=== PATIENT | female | born 1960 | race Caucasian/White ===

== ENCOUNTER → 2017-11-17 | Outpatient (CLI) | payer OTHER ==
[~2017-11-17] MED LIST: AMLO2.5T PO; CITA10TA8 PO; HYDR25TA4 PO; IBUP-103 PO; LORA-741 PO; LPD600 PO; LSN40 PO; ZCR40 PO
[2017-11-17 13:18] LABS: HEMOGLOBIN A1C 7.6 % (4.5-5.6)
[2017-11-17 13:49] LABS: ALBUMIN 3.5 gm/dl (3.4-5.0); ALT/SGPT 21 U/L (12-78); BLOOD UREA NITROGEN 29 mg/dl (7-18); CALCIUM 9.2 mg/dl (8.5-10.1); CARBON DIOXIDE 27 mmol/L (21-32); CHOLESTEROL 209 mg/dl (0-200); GLUCOSE 140 mg/dl (70-99); POTASSIUM 4.4 mmol/L (3.5-5.1); SODIUM 140 mmol/L (136-145)
[2017-11-17 13:52] LABS: ALKALINE PHOSPHATASE 72 U/L (45-117); AST/SGOT 10 U/L (15-37); LDL CHOLESTEROL CALCULATED 129 mg/dl; TOTAL PROTEIN 7.6 gm/dl (6.4-8.2)
== END | disposition home or self-care (01) ==
LOC: C.LABBFT 08:30
PROVIDERS: ATTEND Internal Medicine
DX: E55.9 Vitamin D deficiency, unspecified (principal); E11.29 Type 2 diabetes mellitus with other diabetic kidney complication; I10 Essential (primary) hypertension; E78.00 Pure hypercholesterolemia, unspecified

== ENCOUNTER → 2017-12-22 | Outpatient (CLI) | payer OTHER ==
--- NOTE | 2017-12-22 13:22 | DIAGNOSTIC IMAGING REPORT ---
R VENOUS DOPP LOWER EXT UNILAT CLINICAL HISTORY: M79.604 pain. Edema. TECHNIQUE: Venous Doppler COMPARISON STUDY: None FINDINGS: Normal study. Compressibility and augmentation characteristics are unremarkable. Venous flow is within normal limits. IMPRESSION: Normal study The above report was generated using voice recognition software. It may contain grammatical, syntax or spelling errors. Electronically signed by: Margarito Abel M.D. 12/22/2017 1:21 PM Dictated Date/Time: 12/22/2017 1:20 PM
--- NOTE | 2017-12-22 13:43 | DIAGNOSTIC IMAGING REPORT ---
R KNEE 3 VIEWS CLINICAL HISTORY: M25.561 pain COMPARISON: None. DISCUSSION: Considerable degenerative change medial and patellofemoral joint compartments. Considerable superior and inferior osteophytic change of the patella. Lateral joint compartment is generally well preserved. Degenerative change throughout all major joint surfaces. No significant joint effusion. There is no evidence for soft tissue swelling. IMPRESSION: Considerable degenerative change. No acute process. The above report was generated using voice recognition software. It may contain grammatical, syntax or spelling errors. Electronically signed by: Margarito Abel M.D. 12/22/2017 1:42 PM Dictated Date/Time: 12/22/2017 1:41 PM
== END | disposition home or self-care (01) ==
LOC: C.ULTR 12:50
PROVIDERS: ATTEND Internal Medicine
DX: M25.561 Pain in right knee (principal); M79.604 Pain in right leg

== ENCOUNTER 2018-05-14 06:03 | Inpatient (IN) | payer OTHER ==
--- NOTE | 2018-05-08 18:18 | HISTORY & PHYSICAL EXAMINATION ---
DATE OF ADMISSION: 05/14/2018 CHIEF COMPLAINT: Right knee pain. HISTORY OF PRESENT ILLNESS: A 58-year-old female who presents for surgical treatment of her right knee. She has been followed by Dr. Bernal, my partner for the past 8 years or so. She has had 8-year history of global increasing right knee pain and discomfort that has gotten worse over the past 2 years. She has got global pain in her knee. The more she walks, the more it hurts. It is starting to affect her sleep pattern. She has been through injections which provided temporary relief only. She would like to have the right knee replaced. We had her scheduled for earlier in the year but had to cancel due to some insurance issues but that has been sorted out. There has been no interval change in her medical situation. PAST MEDICAL HISTORY: 1. Hypertension. 2. Elevated cholesterol. 3. Anxiety/depression. 4. Obesity. 5. Kidney disease. 6. Diabetes. PAST SURGICAL HISTORY: Includes x2. ALLERGIES: None. CURRENT MEDICINES: Include: 1. Lisinopril 40 mg a day. 2. Hydrochlorothiazide 25 mg a day. 3. Simvastatin 40 mg. 4. Lorazepam 5 mg p.r.n. for anxiety. 5. Gemfibrozil 600 mg twice a day. 6. Vitamin D 5000 units once a week. SOCIAL HISTORY: A 57-year-old white female. She is . Rare alcohol intake. No tobacco use. FAMILY HISTORY: Heart disease and stroke, diabetes and cancer. REVIEW OF SYSTEMS: Negative for chest pain or shortness of breath. No history of DVT or PE. Her medical doctor is Dr. Storey. Her A1c is 7.6. PHYSICAL EXAMINATION: GENERAL: Reveals a pleasant, middle-aged female, looks to be in reasonably good health. HEENT: Benign. NECK: Supple, no lymphadenopathy. LUNGS: Clear to auscultation. HEART: Regular rate and rhythm. ABDOMEN: Soft, nontender, nondistended. EXTREMITIES: Grossly neurovascularly intact except as follows: Examination of the right knee reveals patient walks with a bit of a waddling gait. She does limp on her right side. She has small to moderate size knee effusion. Range of motion is 5-120. No instability. No pain with hip motion. X-RAYS: X-ray of the right knee reviewed. Shows advanced right knee DJD. She has tricompartment disease. She has complete loss of medial joint space. She has got osteophytes both medially and laterally. ASSESSMENT: A 57-year-old white female with an 8-year history of increasing right knee pain and discomfort, unresponsive to conservative treatment. She would like to proceed with knee replacement. PLAN: We will take her to the operating room and do a right total knee replacement. The risks and benefits of procedure were explained to the patient including but not limited to DVT, PE, , infection, neurological injury, vascular injury, bleeding problem, pain, limited range of motion, stiffness, failure to relieve symptoms, incomplete relief of symptoms, need for further surgery in the future, fracture, leg length, nerve palsy, etc. The patient understands and desires to proceed. Informed consent was obtained. We did talk about holding her NSAIDs as well as her lisinopril the morning of surgery. We will follow her creatinine and limit NSAID use as indicated based on her creatinine. As far as discharge plan, she is hoping to be discharged to home with her 's assistance and the [facility] home health program.
[2018-05-10 12:03] VITALS: BMI 39.0
[~2018-05-14] VITALS: Ht 160 cm; Wt 102.0 kg
[2018-05-14] VITALS (9 sets, daily range): BP systolic 123–185; BP diastolic 69–90; PULSE 60–75; TEMP 36.2–36.7; O2SAT 95–100; Ht 160 cm; Wt 102.0 kg
[~2018-05-14 06:03] MED LIST changes: +ACETAMINOPHEN 500 MG TAB PO SCH; -AMLO2.5T PO; +BUPIVACAINE LIPOSOME 266 MG, BUPIVACAINE/EPINEPHRINE INJ 50 ML, SODIUM CHLORIDE 0.9% PF... INFIL SCH; +CEFAZOLIN 2000MG IV PUSH 15 ML IV SCH; -CITA10TA8 PO; +ERGO500037 PO; +FAMOTIDINE 20 MG TAB PO SCH; +GABAPENTIN 600 MG PO SCH; +LACTATED RINGER'S 1000ML IV SCH; +LACTATED RINGER'S 500 ML IV SCH; +LISI40TA3 PO; -LSN40 PO; +METOCLOPRAMIDE HCL 10 MG TAB PO SCH; +NSS 1000ML IV SCH; +SCOPOLAMINE 1.5 MG TDSY TD SCH; +SODIUM CHLORIDE 0.9% 1000ML 1,000 ML IV SCH; +TRANEXAMIC ACID INJ 1,000 MG x 1 Bag Intra-Op IV SCH
[2018-05-14] MEDS ORDERED: ACET1TAB84 PO (06:41)
--- NOTE | 2018-05-14 06:55 | History & Physical Bridge Note ---
H&P Re-Evaluation Bridge Note: I have examined the patient, reviewed the History & Physical and in the interval since the performance of the History & Physical I have noted the following changes of clinical significance: No changes noted
[2018-05-14] MEDS ORDERED: MIDAZOLAM HCL 1 MG/ML 2ML VIAL ONE ×3 (07:37→10:14)
[2018-05-14] MEDS ORDERED: LIDOCAINE HCL 2% 2 ML VIAL (20MG/ML) ONE (07:37)
[2018-05-14] MEDS ORDERED: PROPOFOL IV EMULSION 10 MG/ML 20 ML VIAL ONE (07:37)
[2018-05-14] MEDS ORDERED: ROPIVACAINE 0.5% 5 MG/ML 30 ML VIAL ONE (07:49)
[2018-05-14] MEDS ORDERED: BUPIVACAINE 0.5 % 5 MG/1 ML PF 10ML VIAL ONE (07:50)
[2018-05-14] MEDS ORDERED: BUPIVACAINE LIPOSOME 1/3% 266 MG/20 ML VIAL ONE (08:51)
[2018-05-14] MEDS ORDERED: BUPIVACAINE 0.25% 30 ML VIAL ONE (08:51)
[2018-05-14] MEDS ORDERED: SODIUM CHLORIDE 0.9% PF 50 ML VIAL ONE (08:51)
[2018-05-14] MEDS ORDERED: BACITRACIN 50000 UNIT VIAL ONE (08:51)
[2018-05-14] MEDS ORDERED: EpINEphrine INJ 1MG/ML AMP 1 MG/ML AMP ONE (08:52)
[2018-05-14] MEDS ORDERED: HYDROmorphone INJ 2 MG/ML SYR/VIAL IV PRN (09:15)
[2018-05-14] MEDS ORDERED: ATROPINE SULFATE 0.1 MG/ML 5ML SYR IV PRN (09:15)
[2018-05-14] MEDS ORDERED: PHENYLEPHRINE 100MCG/ML 5ML SYR IV PRN (09:15)
[2018-05-14] MEDS ORDERED: EpHEDrine SULFATE INJ 50 MG/ML AMP IV PRN (09:15)
[2018-05-14] MEDS ORDERED: KETOROLAC TROMETHAMINE 30 MG/ML VIAL IV. PRN (09:15)
[2018-05-14] MEDS ORDERED: ONDANSETRON INJ 2 MG/ML 2 ML VIAL IV PRN ×2 (09:15→11:15)
[2018-05-14] MEDS ORDERED: PHENYLEPHRINE 100MCG/ML 5ML SYR ONE (09:55)
[2018-05-14] MEDS ORDERED: GLYCOPYRROLATE INJ 0.2 MG/ML VIAL ONE (09:55)
[2018-05-14] MEDS ORDERED: METOPROLOL TARTRATE 1 MG/ML VIAL ONE (10:55)
--- NOTE | 2018-05-14 11:06 | [facility] Post Operative Brief Note ---
Immediate Operative Summary Operative Date May 14, 2018. 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 Right Knee bone and tissue Drains None Anesthesia Type MAC Spinal Regional Complication(s) none Disposition Accompanied Pt To Recover: no Disposition: Recovery Room / PACU Overlapping Procedure I was present for: the critical portions of procedure. I was immediately available: during the entire case
[2018-05-14] MEDS ORDERED: SILVER SULFADIAZINE 1% CR 50 GM JAR EXT PRN (11:15)
[2018-05-14] MEDS ORDERED: DEXTROSE 50% 50 ML SYR IV PRN (11:15)
[2018-05-14] MEDS ORDERED: ZOLPIDEM TARTRATE 5 MG TAB PO PRN (11:15)
[2018-05-14] MEDS ORDERED: DiphenhydrAMINE HCL 50 MG/ML VIAL IV PRN (11:15)
[2018-05-14] MEDS ORDERED: GLUCOSE 40% GEL 15 GM TUBE PO PRN (11:15)
[2018-05-14] MEDS ORDERED: MAGNESIUM HYDROXIDE SUSP 30 ML UDC PO PRN (11:15)
[2018-05-14] MEDS ORDERED: ALUMINUM/MAGNESIUM/SIMETH (MAALOX MAX) 30 ML UDC PO PRN (11:15)
[2018-05-14] MEDS ORDERED: GLUCOSE 10 TABS/TUBE PO PRN (11:15)
[2018-05-14] MEDS ORDERED: LORAZEPAM 0.5 MG TAB PO PRN (11:15)
[2018-05-14] MEDS ORDERED: CARBOHYDRATES FOR HYPOGLYCEMIA PO PRN (11:15)
[2018-05-14] MEDS ORDERED: METOCLOPRAMIDE HCL INJ 5 MG/ML 2 ML VIAL IV PRN (11:15)
[2018-05-14] MEDS ORDERED: BISACODYL 10 MG SUPP PR PRN (11:15)
[2018-05-14] MEDS ORDERED: GLUCAGON FOR INJ 1 MG VIAL SQ PRN (11:15)
--- NOTE | 2018-05-14 11:30 | DIAGNOSTIC IMAGING REPORT ---
RIGHT KNEE 2 VIEWS History: Right total knee arthroplasty. Degenerative arthritis. Postop. FINDINGS: The patient is status post a right total knee arthroplasty. The hardware is intact. No fracture or dislocation. Skin dominik are in place. IMPRESSION: Right total knee arthroplasty. No evidence for hardware complication. Electronically signed by: Cesar Francois M.D. 05/14/2018 11:29 AM Dictated Date/Time: 05/14/2018 11:29 AM
[2018-05-14] MEDS: FERROUS GLUCONATE 324 MG TAB PO SCH ×2 (13:10→17:39)
[2018-05-14] MEDS: ACETAMINOPHEN 500 MG TAB PO SCH ×2 (13:12→21:56)
[2018-05-14] MEDS: KETOROLAC TROMETHAMINE 30 MG/ML VIAL IV. SCH ×2 (13:13→21:56)
[2018-05-14] MEDS: TRAMADOL HCL 50 MG TAB PO PRN ×3 (13:21→18:12)
[2018-05-14] MEDS: SODIUM CHLORIDE 0.9% 1000ML 1,000 ML IV SCH ×2 (13:21→22:01)
--- NOTE | 2018-05-14 13:32 | Anesthesiology Progress Note ---
Anesthesia Post Op Note Date & Time May 14, 2018 at 13:32 Vital Signs Vital Signs Past 12 Hours Date Time Temp Pulse Resp B/P (MAP) Pulse Ox O2 Delivery O2 Flow Rate FiO2 05/14/18 12:50 36.5 75 18 159/79 (105) 100 Nasal Cannula 3.0 05/14/18 12:20 36.3 72 16 159/87 (111) 100 Nasal Cannula 3.0 05/14/18 11:50 36.4 74 18 123/69 (87) 100 Nasal Cannula 2.0 05/14/18 11:50 Nasal Cannula 2.0 05/14/18 11:50 Nasal Cannula 05/14/18 11:35 36.9 72 16 108/54 96 Nasal Cannula 2 05/14/18 11:25 77 16 99/55 96 Nasal Cannula 2 05/14/18 11:15 71 16 93/55 93 Nasal Cannula 2 05/14/18 11:08 37.2 85 16 103/46 93 Room Air 05/14/18 06:46 36.7 72 18 185/81 97 Room Air Notes Mental Status: alert / awake / arousable, participated in evaluation Pt Amnestic to Procedure: Yes Nausea / Vomiting: adequately controlled Pain: adequately controlled Airway Patency, RR, SpO2: stable & adequate BP & HR: stable & adequate Hydration State: stable & adequate Anesthetic Complications: no major complications apparent
[2018-05-14] MEDS: HYDROmorphone INJ 0.5 MG/0.5 ML SYR IV PRN ×2 (14:11→15:13)
--- NOTE | 2018-05-14 14:33 | OPERATIVE REPORT ---
DATE OF OPERATION: 05/14/2018 SURGEON: Brian Lechuga MD [id number] ARMOR CREWMAN: Raf Haynes PA-C PREOPERATIVE DIAGNOSIS: Right knee degenerative joint disease. POSTOPERATIVE DIAGNOSIS: Same. PROCEDURE PERFORMED: Right cemented posterior stabilized total knee arthroplasty. COMPLICATIONS: None. ESTIMATED BLOOD LOSS: 50 mL. FLUID REPLACEMENT: 1600 mL crystalloid fluid replacement. ANESTHESIA: Spinal, with adductor canal block. DRAINS: None. SPECIMENS: Right knee sent for pathology. TOURNIQUET TIME: 59 minutes at 300 mmHg. OPERATIVE INDICATIONS: Patient is a 58-year-old female who has had a very long history of right knee pain and discomfort, treated by my partner, Dr. Bernal, over the past 8 years or so. It has gradually gotten worse over time. In the last 2 years, it has just gotten progressively worse to the point where she is having trouble getting around. X-rays show advanced DJD. She had actually been scheduled for a surgery in the past but had to reschedule due to some insurance issues. She now would like to proceed with total knee arthroplasty. OPERATIVE FINDINGS: Advanced right knee DJD. She had extensive grade 4 changes in the medial femoral condyle and medial tibial plateau. She did have eburnation of the bone as well. She had a varus deformity to her knee, moderate size joint effusion. OPERATIVE IMPLANTS: Consisted of: 1. Biomet Vanguard size 60 right posterior stabilized femoral component. 2. Biomet size 63 tibial tray. 3. A 10 mm posterior stabilized polyethylene insert. 4. A 28 x 8 All-Poly patella. OPERATIVE PROCEDURE: Patient was taken to the operating room, identified and placed on the operating room table in supine position. All contact areas were appropriately padded. IV antibiotics provided by anesthesia team. A spinal anesthetic and adductor canal block had been provided in the holding area. Cage catheter was placed in sterile fashion. Right thigh tourniquet was then placed, and the right lower extremity was then prepped and draped in the usual sterile fashion. The right leg was elevated and exsanguinated with Esmarch. The tourniquet was placed at 300 mmHg. An anterior approach to the right knee was then performed to longitudinal incision centered over the patella. Sharp dissection was carried down through subcutaneous tissue down to the level of the extensor mechanism. A medial parapatellar arthrotomy incision was made. Some subperiosteal dissection was carried out medially. Fat pad resected from beneath the patellar tendon. Lateral patellofemoral ligament was released. Patella was everted. Knee was flexed. The osteophytes were taken off distal femur. The ACL and PCL were then released from the distal femur and the tibia subluxated anteriorly. The external tibial alignment jig was then placed in the anterior face of the tibia and adjusted 14 mm medially. Proximal tibial cut was made to remove about 1 mm of bone from the most deficient aspect of the medial tibial plateau. Some osteophytes were taken off medially and posteromedially. Tibia was sized to a size 63. Attention was then drawn to the femur. The distal femur was entered with a sharp drill. Intramedullary canal was suctioned. A right 5 degree valgus cutting guide was placed. Distal femoral cutting block was pinned in place. Distal femoral cut was made to take an additional 3 mm of bone off distal femur. The femur was then sized to a size 60. We did downsize this slightly. The AP cutting block was pinned parallel to the epicondylar axis, which was 3 degrees of external rotation. The anterior cut, anterior chamfer, posterior cut, and posterior chamfer cuts were made. Box cutting guide was placed and adjusted slightly lateral, and the box cut was made. The knee was flexed. The remnants of the medial and lateral menisci were excised. The osteophytes were taken off the posterior aspect of the femur. A trial femoral component was placed. Tibial tray was pinned in maximum external rotation, and the drill and stem punch were used to create the defect in the proximal tibia for the tibial tray. Knee was then trialed, and a 10 mm insert fit most appropriately. Attention was then drawn to the patella. The patella was cleaned of all soft tissues. Patellar thickness measured 18 mm, cut down to 12. It was sized to a size 28 patella. Locals were drilled for a 28 patella. Lateral osteophyte was removed. Patellar button was placed. Knee was taken through range of motion, and patella tracked nicely with no thumbs test. Attention was then drawn toward placement of the permanent components. All trial components removed. Bone plug was placed in the distal femur to limit blood loss. A double batch of Palacos G cement was mixed. A right size 60 posterior stabilized femoral component, size 63 tibial tray, 10 mm posterior stabilized polyethylene insert, and a 28 x 8 All-Poly patella then cemented in place. Knee was brought into full extension until cement hardened. A final cement check was then performed. Pericapsular tissues were injected with a total of 100 mL of a combination of 20 mL of Exparel, 30 mL normal saline, and 50 mL of 0.25% Marcaine with epinephrine. Patient did receive 1 g of tranexamic acid. The tourniquet was then let down for a final tourniquet time of 59 minutes. Hemostasis was assured using electrocautery. The extensor mechanism was then closed with combination of #1 PDS suture and #1 Vicryl suture in a [id number] fashion. Extensor mechanism was checked and found to be intact. The subcutaneous tissue was then closed with #2 Dexon suture in a buried interrupted fashion. Skin was closed with skin dominik. Leg was then cleaned and dried, and a sterile dressing of Xeroform, 4x4s, sterile cast padding, and Ananth bandage were applied. The patient was then transferred to the recovery room in stable condition. The patient tolerated the procedure well without complication. All needle and sponge counts were correct at the end of the operation. I attest to the content of the Intraoperative Record and any orders documented therein. Any exceptions are noted below. DAGMAR
[2018-05-14] MEDS: CHECK SCOPOLAMINE PATCH PLACEMENT SCH ×2 (15:06→23:59)
--- NOTE | 2018-05-14 15:38 | PROGRESS NOTE ---
DATE: 05/14/2018 SUBJECTIVE: A 58-year-old white female postop from a right knee replacement. She is doing well. Just starting to get pain in her leg. Denies any chest pain, no shortness of breath. Not feeling dizzy or lightheaded. OBJECTIVE: VITAL SIGNS: Temperature 36.6. Stable. GENERAL: Physical exam shows a pleasant middle-aged female. She is sitting up in bed, looks reasonably comfortable. She is talking to her family. RESPIRATORY: Her lungs are clear to auscultation. CARDIOVASCULAR: Heart has a regular rate and rhythm. GASTROINTESTINAL: Abdomen is soft, nontender, nondistended. EXTREMITIES: Grossly neurovascularly intact except as follows: Examination of the right leg reveals the leg to be well aligned. Dressing is clean, dry, and intact. She can dorsiflex and plantarflex her foot appropriately. NEUROLOGICAL: She is neurologically intact. IMAGING: X-rays of the right knee from recovery room reviewed. It showed cemented posterior stabilized total knee arthroplasty. Components looked to be in good position. No signs of problems. ASSESSMENT: A 58-year-old female postop from a right knee replacement, doing well. Pain is controlled. She is neurologically intact. PLAN: 1. DVT prophylaxis including thigh-high TEDs, SCDs, and aspirin twice a day. 2. PT/OT. Weight bear as tolerated. Right total knee protocol. 3. Pain control, doing pretty well with current pain regimen. 4. IV antibiotics x24 hours. 5. Disposition: Plan is to discharge to home likely with some home health once adequately recovered.
[2018-05-14] MEDS: CEFAZOLIN IV 2,000 MG in SYRINGE 0 ML IV SCH (16:28)
[2018-05-14] MEDS ORDERED: TRANEXAMIC ACID INJ 1,000 MG in SODIUM CHLORIDE 0.9% 100ML 100 ML IV SCH (17:00)
[2018-05-14] MEDS: INSULIN HUMAN REGULAR SC SCH ×2 (17:40→21:55)
[2018-05-14] MEDS: DOCUSATE SODIUM 100 MG CAP PO SCH (19:37)
[2018-05-14] MEDS: SENNA 8.6 MG TAB PO SCH (19:38)
[2018-05-14] MEDS: ASPIRIN 81 MG ECTAB PO SCH (19:38)
[2018-05-15] MEDS: CEFAZOLIN IV 2,000 MG in SYRINGE 0 ML IV SCH (00:02)
[2018-05-15] MEDS: KETOROLAC TROMETHAMINE 30 MG/ML VIAL IV. SCH ×4 (02:22→20:21)
[2018-05-15 03:03] VITALS: BP 117/76; PULSE 70; TEMP 36.8; O2SAT 94
[2018-05-15] MEDS: ACETAMINOPHEN 500 MG TAB PO SCH ×3 (05:46→21:47)
[2018-05-15] MEDS: SODIUM CHLORIDE 0.9% 1000ML 1,000 ML IV SCH (05:46)
[2018-05-15 05:52] LABS: HEMATOCRIT 33.1 % (37-47); HEMOGLOBIN 10.7 g/dL (12.0-16.0); MEAN CELL VOLUME 98.8 fL (80-100); MEAN CORPUSCULAR HEMOGLOBIN 31.9 pg (25-34); MEAN CORPUSCULAR HGB CONC 32.3 g/dl (32-36); MEAN PLATELET VOLUME 10.8 fL (7.4-10.4); PLATELET COUNT 219 K/uL (130-400); RED CELL DISTRIBUTION WIDTH CV 11.9 % (11.5-14.5); RED CELL DISTRIBUTION WIDTH SD 42.9 fL (36.4-46.3); WHITE BLOOD COUNT 9.74 K/uL (4.8-10.8)
[2018-05-15 06:21] LABS: CALCIUM 7.9 mg/dl (8.5-10.1); CREATININE 1.16 mg/dl (0.60-1.20); POTASSIUM 4.2 mmol/L (3.5-5.1)
[2018-05-15 07:44] VITALS: BP 145/87; PULSE 57; TEMP 36.7; O2SAT 97
[2018-05-15] MEDS: CHECK SCOPOLAMINE PATCH PLACEMENT SCH ×2 (08:20→15:29)
[2018-05-15] MEDS: TRAMADOL HCL 50 MG TAB PO PRN ×3 (08:20→17:19)
[2018-05-15] MEDS: FERROUS GLUCONATE 324 MG TAB PO SCH ×3 (08:21→17:16)
[2018-05-15] MEDS: ASPIRIN 81 MG ECTAB PO SCH ×2 (08:22→20:21)
[2018-05-15] MEDS: HYDROCHLOROTHIAZIDE 25 MG TAB PO SCH (08:22)
[2018-05-15] MEDS ORDERED: ASPI-461 PO (08:22)
[2018-05-15] MEDS: DOCUSATE SODIUM 100 MG CAP PO SCH ×2 (08:22→20:21)
[2018-05-15] MEDS ORDERED: ACET-24 PO (08:22)
[2018-05-15] MEDS ORDERED: ULT50X PO (08:22)
[2018-05-15] MEDS: SIMVASTATIN 40 MG TAB PO SCH (08:23)
[2018-05-15] MEDS: MULTIVITAMIN TAB PO SCH (08:23)
[2018-05-15] MEDS: GEMFIBROZIL 600 MG TAB PO SCH (08:23)
[2018-05-15] MEDS: PANTOprazole SOD 40 MG TAB PO SCH (08:23)
[2018-05-15] MEDS: LISINOPRIL 40 MG TAB PO SCH (08:24)
--- NOTE | 2018-05-15 09:18 | PROGRESS NOTE ---
DATE: 05/15/2018 SUBJECTIVE: A 58-year-old white female postop day 1 from right knee replacement. She is doing pretty well. Getting around reasonably well and better than what she expected. Denies any chest pain or shortness of breath. Pain has been controlled. OBJECTIVE: VITAL SIGNS: Temperature 36.7. Vital signs stable. PHYSICAL EXAMINATION: GENERAL: Physical examination reveals a pleasant, middle-aged female. She is sitting up in her bedside chair, looks pretty comfortable. EXTREMITIES: Examination of the right leg reveals the leg to be well aligned. Dressing is clean, dry and intact. She can dorsiflex and plantarflex her foot appropriately. She is neurologically intact. LABORATORY DATA: Hemoglobin 10.7. Hematocrit 33.1. Electrolytes are stable. ASSESSMENT: A 58-year-old white female postop day 1 from a right knee replacement, doing pretty well. Pain is controlled. She is doing better than what she expected. PLAN: 1. DVT prophylaxis including thigh-high TEDs, SCDs, and aspirin twice a day. 2. PT/OT. Weight bear as tolerated. Right total knee protocol. 3. Pain control, doing pretty well with current pain regimen. 4. Disposition: She is hoping to be discharged to home with some home health once adequately recovered.
[2018-05-15] MEDS: INSULIN HUMAN REGULAR SC SCH ×4 (09:21→20:46)
[2018-05-15 10:59] VITALS: BP 166/84; PULSE 66; TEMP 36.7; O2SAT 97
[2018-05-15 15:36] VITALS: BP 135/78; PULSE 71; TEMP 36.7; O2SAT 94
--- NOTE | 2018-05-15 17:37 | Discharge Instructions ---
Discharge Instructions Date of Service May 15, 2018. Admission Reason for Admission: Right Knee Osteoarthritis Discharge Discharge Diagnosis / Problem: Right Knee Replacement Discharge Goals Goal(s): Decrease discomfort, Improve function, Increase independence, Improve disease control, Therapeutic intervention Activity Recommendations Activity Limitations: per Instructions/Follow-up section . Instructions / Follow-Up Instructions / Follow-Up ACTIVITY RECOMMENDATIONS: Physical Therapy: * You will go to physical therapy three times each week for four to six weeks after your surgery in order to regain your knee range of motion and to retrain your knee to work properly. * It is just as important to make sure you are getting your knee perfectly straight as it is to regain your knee bend. * Taking a pain pill an hour before therapy can help you have a more productive and comfortable therapy session. Home Exercise: * You were shown a series of exercises (heel props, heel slides, etc.) in the hospital. Do these exercises three to four times each day including the exercises you were shown in physical therapy. Walking: * Get up and walk several times each day. For the first four weeks, try not to stand or walk for more than one hour at a time. If you do stand or walk for more than one hour, you will not hurt anything, but your knee and leg will likely swell. * As you feel comfortable, you may change from the walker or crutches to a cane and then to independent walking. MEDICATIONS: New Medicine: * You will likely be taking one or more of these medications: 1. Tramadol - A quick and shorter-acting pain medication. Take one to two tablets every four to six hours to lessen your pain. 2. Aspirin - Thins your blood to lessen the chance of forming a blood clot. * The most common side effects of pain medicine and iron are nausea and constipation. If nausea or constipation is too much of a problem or if you have any questions about your new medicines or doses, call [facility] at . We will try to help you manage these issues. VERY IMPORTANT TO READ AND REVIEW" Pain: * The immediate post-operative period after knee replacement surgery is often quite painful. * You are given a prescription for pain medicine. You should take it, as directed, when you need it, especially before physical therapy and before going to bed. Pain that interferes with sleep is very common and can last several months. * You will likely need pain medicine for the first four to six weeks. It will not stop all of the pain. The pain will lessen and as you feel better, you may change to milder pain medicine such as Tylenol. * The most common side effects of pain medicine are nausea and constipation, so don't take more than you need. SPECIAL CARE INSTRUCTIONS: TEDs/Elastic Stockings: * The white elastic stockings help limit swelling and prevent blood clots from forming in your legs. The more you wear them, the more they work. * Wear them for six weeks after knee replacement surgery and four weeks after partial knee replacement. Prevention of Infection: * Take antibiotics one hour before any dental cleaning, dental work, urological procedure, gastrointestinal procedure or any invasive surgery in order to prevent your new joint from getting infected. * You may get the antibiotics from the doctor performing the procedure or you may call our office at before and we will call in a prescription to the pharmacy of your choice. Things to Watch For: * Drainage from the incision site that occurs more than one week after your surgery. * Severely increased knee/leg pain or swelling. * Increased redness at the incision site. * Fever above 102 degrees Fahrenheit. * Unusual chest pain or shortness of breath. * Unusual pain or burning with urination. Call [facility] at with any of the above problems or if you have any questions about your medicines or recovery. FOLLOW UP VISIT: Make an appointment to see your doctor for approximately two weeks after surgery for a progress check and staple removal by calling the office at . Current Hospital Diet Patient's current hospital diet: Diabetes Type 2 Diet Discharge Diet Recommended Diet: Diabetes Type 2 Diet Procedures Procedures Performed: Right Total Knee Arthroplasty Cemented Pending Studies Studies pending at discharge: no Medical Emergencies . Who to Call and When: Medical Emergencies: If at any time you feel your situation is an emergency, please call [phone] immediately. . Non-Emergent Contact Non-Emergency issues call your: Surgeon . "Provider Documentation" section prepared by Brian Lechuga. .
[2018-05-15] MEDS: SENNA 8.6 MG TAB PO SCH (20:21)
[2018-05-15 23:13] VITALS: BP 160/76; PULSE 74; TEMP 37; O2SAT 92
[2018-05-16] MEDS: CHECK SCOPOLAMINE PATCH PLACEMENT SCH ×2 (00:29→08:30)
[2018-05-16] MEDS: KETOROLAC TROMETHAMINE 30 MG/ML VIAL IV. SCH ×2 (01:56→08:30)
[2018-05-16] MEDS: ACETAMINOPHEN 500 MG TAB PO SCH (05:51)
[2018-05-16 07:14] VITALS: BP 171/100; PULSE 62; TEMP 36.6; O2SAT 96
--- NOTE | 2018-05-16 07:39 | PROGRESS NOTE ---
DATE: 05/16/2018 SUBJECTIVE: A 58-year-old white female postop day 2 from a right knee replacement. She is doing well. Pain is controlled. No chest pain, no shortness of breath. Not feeling dizzy or lightheaded. OBJECTIVE: VITAL SIGNS: Temperature is 37.0. Stable. GENERAL: Physical examination shows a pleasant middle-aged female, sitting up in bed and looks comfortable. EXTREMITIES: Examination of the right leg reveals the dressing to be clean, dry, and intact. Leg is well aligned. Calf is soft and supple. NEUROLOGIC: She is neurologically intact. ASSESSMENT: A 58-year-old white female postop day 2 from right knee replacement, doing well. Pain is controlled. PLAN: 1. DVT prophylaxis including thigh-high TEDs, SCDs, and aspirin twice a day. 2. PT/OT. Weight bear as tolerated. Right total knee protocol. 3. Pain control. Doing well with current pain regimen. 4. Disposition: Plan is to discharge to home with some home health later today.
[2018-05-16] MEDS: INSULIN HUMAN REGULAR SC SCH (08:00)
[2018-05-16] MEDS: GEMFIBROZIL 600 MG TAB PO SCH (08:31)
[2018-05-16] MEDS: MULTIVITAMIN TAB PO SCH (08:31)
[2018-05-16] MEDS: FERROUS GLUCONATE 324 MG TAB PO SCH (08:31)
[2018-05-16] MEDS: PANTOprazole SOD 40 MG TAB PO SCH (08:32)
[2018-05-16] MEDS: HYDROCHLOROTHIAZIDE 25 MG TAB PO SCH (08:32)
[2018-05-16] MEDS: SIMVASTATIN 40 MG TAB PO SCH (08:32)
[2018-05-16] MEDS: DOCUSATE SODIUM 100 MG CAP PO SCH (08:33)
[2018-05-16] MEDS: LISINOPRIL 40 MG TAB PO SCH (08:33)
[2018-05-16] MEDS: ASPIRIN 81 MG ECTAB PO SCH (08:33)
[2018-05-16] MEDS: TRAMADOL HCL 50 MG TAB PO PRN (10:46)
[2018-05-16 11:01] VITALS: PULSE 62; TEMP 36.6; O2SAT 96
[2018-05-16 11:05] VITALS: BP 166/79
[2018-05-21] MEDS ORDERED: ERGOCALCIFEROL 50,000 INTER.UNIT CAP PO SCH (09:00)
== END 2018-05-16 11:38 | disposition home or self-care (01) | DRG 470 ==
LOC: C.ACU 06:03 → C.3E 07:00 → ENRESERV 11:25
PROVIDERS: ADMIT Orthopaedic Surgery Sports Medicine; ATTEND Orthopaedic Surgery Sports Medicine
PROC: 0SRC0J9 Replacement of Right Knee Joint with Synthetic Substitute, Cemented, Open Approach (ICD-10-PCS; principal; 2018-05-14 09:00)
DX: M17.11 Unilateral primary osteoarthritis, right knee (principal); I10 Essential (primary) hypertension; E11.9 Type 2 diabetes mellitus without complications; E78.00 Pure hypercholesterolemia, unspecified; E66.9 Obesity, unspecified; Z79.899 Other long term (current) drug therapy; Z68.39 Body mass index [BMI] 39.0-39.9, adult; Z83.3 Family history of diabetes mellitus; Z82.3 Family history of stroke